=== PATIENT | female | born 1985 | race African-American/Black ===

== ENCOUNTER 2019-10-14 16:33 | Emergency (ER) | payer MEDICAID, OTHER ==
[~2019-10-14] VITALS: Ht 167.6 cm; Wt 52.2 kg
[~2019-10-14 16:33] MED LIST: MACROBID100 MG ORAL; NKM; PRENATAL FORMU1 EAC2 ORAL
--- NOTE | 2019-10-14 17:00 | NUR ---
ED Nurse Note: pt walked in c/o vaginal discharge and dysuria x3days. pt reports clear discharge, denies pain or fever. pt reports using monistat. vss, nad. erpa at bedside. will continue to monitor patient.
--- NOTE | 2019-10-14 17:01 | NUR ---
ED Nurse Note: URINE COLLECTED AND SENT TO LAB.
[2019-10-14] MEDS ORDERED: Fluconazole 150mg tab ORAL ONE (17:45)
[2019-10-14 17:57] VITALS: BP 107/66
[2019-10-14 18:41] LABS: APPEARANCE,URINE CLEAR; BILIRUBIN, URINE NEGATIVE (NEGATIVE); GLUCOSE, URINE (UA) NEGATIVE (NEGATIVE); KETONES,URINE NEGATIVE (NEGATIVE); LEUKOCYTE ESTERASE ,URINE 1+ (NEGATIVE); NITRITE,URINE NEGATIVE (NEGATIVE); PH,URINE 8 (4.5-8.0); PROTEIN,URINE NEGATIVE (NEGATIVE); UROBILINOGEN,URINE NORMAL MG/DL (0.0-1.0)
--- NOTE | 2019-10-14 18:44 | Emergency Room Report ---
History of Present Illness General Chief Complaint: Female Urogenital Problems Source: Patient Present Illness HPI 34-year-old female with no significant past medical history here complaining of 2 days of dysuria, urinary frequency and urgency as well as a white clumpy vaginal discharge. Patient reports that she is currently on her menstrual period. Denies generalized abdominal pain, nausea vomiting, fever and chills, flank pain. Has not taken medication for symptom relief. Reports that she used Monistat earlier however did not help. Denies at this time. Reports that she is sexually active however with her . Denies STD. Allergies: Coded Allergies: No Known Allergies (Unverified , 10/30/15) Patient History Past Medical History: see triage record Past Surgical History: none Pertinent Family History: none Last Menstrual Period: 10/14/2019 Now: No : 4 Para: 2 Immunizations: UTD Reviewed Nursing Documentation: PMH: Agreed; PSxH: Agreed Review of Systems All Other Systems: negative except mentioned in HPI Physical Exam Vital Signs Date Time Temp Pulse Resp B/P (MAP) Pulse Ox O2 Delivery O2 Flow Rate FiO2 10/14/19 16:55 98.2 93 15 103/65 (78) 99 Room Air Sp02 EP Interpretation: reviewed, normal General Appearance: no apparent distress, alert, GCS 15, non-toxic Head: normocephalic, atraumatic Eyes: bilateral eye normal inspection, bilateral eye PERRL ENT: hearing grossly normal, normal pharynx, no angioedema, normal voice Neck: full range of motion, supple/symm/no masses Respiratory: chest non-tender, lungs clear, normal breath sounds, no rhonchi, no wheezing, speaking full sentences Cardiovascular #1: regular rate, rhythm, no edema, no murmur Gastrointestinal: non tender, soft Genitourinary: no CVA tenderness Musculoskeletal: back normal Neurologic: alert, oriented Psychiatric: normal inspection, judgement/insight normal Skin: no rash Lymphatic: no adenopathy Medical Decision Making PA Attestation All my diagnosis and treatment plans were reviewed ad discussed with my supervising physician Dr. Huddleston Diagnostic Impression: Primary Impression: UTI (urinary tract infection) Additional Impression: Yeast infection ER Course 34-year-old female with no significant past medical history here complaining of 2 days of dysuria, urinary frequency and urgency as well as a white clumpy vaginal discharge. Patient reports that she is currently on her menstrual period. Denies generalized abdominal pain, nausea vomiting, fever and chills, flank pain. Has not taken medication for symptom relief. Reports that she used Monistat earlier however did not help. Denies at this time. Reports that she is sexually active however with her . Denies STD. Ddx considered but are not limited to: UTI, pyelonephritis, urinary incontinence , prolapsed bladder, BV, yeast infection, chlamydia, gonorrhea Vital signs: are WNL, pt. is afebrile H&PE are most consistent with: Vaginitis yeast infection, UTI ORDERS: UA, urine cx, urine test, Macrobid, Pyridium, Diflucan ED INTERVENTIONS: Diflucan p.o. DISCHARGE: At this time pt. is stable for d/c to home. Will provide printed patient care instructions, and any necessary prescriptions. Care plan and follow up instructions have been discussed with the patient prior to discharge. Due to patient being currently on her menstrual. And reports that she has had this reaction with wearing pads before getting is infection advised patient to follow-up with primary doctor and forestry faculty member for prednisone and rectal swab. Patient refuses to be tested for sexually transmitted diseases or treated for possible STD. Gave 1 dose of Diflucan here. Asked patient to repeat the dose in 1 week if symptoms continue to be bothersome. If worsening symptoms return to the emergency room Last Vital Signs Date Time Temp Pulse Resp B/P (MAP) Pulse Ox O2 Delivery O2 Flow Rate FiO2 10/14/19 17:57 98.4 66 15 107/66 99 Room Air Disposition: HOME, SELF-CARE Condition: Stable Scripts Fluconazole (DIFLUCAN) 150 Mg Tablet 150 MG PO ONCE for 1 Day, #1 TAB Prov: Gurvinder Barr PA 10/14/19 Phenazopyridine Hcl* (PYRIDIUM*) 200 Mg Tablet 200 MG ORAL THREE TIMES A DAY for 2 Days, #6 TAB 0 Refills Prov: Gurvinder Barr PA 10/14/19 Nitrofurantoin Monohyd/M-Cryst* (MACROBID 100 MG*) 100 Mg Capsule 100 MG ORAL EVERY 12 HOURS for 7 Days, #14 CAP Prov: Gurvinder Barr PA 10/14/19 Patient Instructions: Vaginal Yeast Infection, Adult, Urinary Tract Infection Gurvinder Barr Oct 14, 2019 18:44
[2019-10-14] MEDS ORDERED: NITROFURANTOIN100 M2 ORAL (18:46)
[2019-10-14] MEDS ORDERED: PHENAZOPYRIDIN200 MG ORAL (18:46)
[2019-10-14] MEDS ORDERED: DIFLUCAN150 MG PO (18:46)
[2019-10-14 18:48] LABS: COLOR,URINE YELLOW
[2019-10-14 18:50] VITALS: BP 107/66
--- NOTE | 2019-10-14 18:50 | NUR ---
ER DISCHARGE NOTE: Patient is cleared to be discharged per ERMD, pt is aox4, on room air, with stable vital signs. pt was given dc and prescription instructions, pt was able to verbalize understanding, pt id band removed without complications. pt is able to ambulate with steady gait. pt took all belongings.
== END 2019-10-14 18:50 | disposition home or self-care (01) ==
LOC: EMR 17:06
DX: N39.0 Urinary tract infection, site not specified (principal); B37.9 Candidiasis, unspecified
CPT/HCPCS: 81003; 81025; Z7502; 99283